=== PATIENT | female | born 1945 | race Caucasian/White ===

== ENCOUNTER 2017-08-07 07:11 | Day surgery (SDC) | payer MEDICARE ==
[~2017-08-07 07:11] MED LIST: Lactated Ringers 0 ML IV ONE; Sensorcaine 0.25% 10 ML ONE
[2017-08-07] MEDS ORDERED: SUBLIMAZE 250 MCG/5 ML IJ ONE (07:12)
[2017-08-07] MEDS ORDERED: BLOXIVERZ IV ONE (07:12)
[2017-08-07] MEDS ORDERED: ROBINUL IV ONE (07:12)
[2017-08-07] MEDS ORDERED: Nimbex 20MG/10 Ml Vial (HIGH RISK MED) IV ONE (07:12)
[2017-08-07] MEDS ORDERED: PHENYLEPHRINE HCL IJ ONE (07:12)
[2017-08-07] MEDS ORDERED: DIPRIVAN 200 MG/20 ML IV ONE (07:12)
[2017-08-07] MEDS ORDERED: Versed 2 MG/2 ML Injection IV ONE (07:12)
[2017-08-07] MEDS ORDERED: Sodium Chloride 0.9% 500 ML 500 ML IV SCH (07:45)
[2017-08-07 09:36] LABS: Calcium 8.6 mg/dL (8.4-10.2); Creatinine 1 4.28 mg/dL (0.52-1.04)
[2017-08-07] MEDS ORDERED: Sodium Chloride 0.9% 1000 ML 1,000 ML ONE (09:36)
[2017-08-07 09:40] LABS: Potassium 5.3 mmol/L (3.5-5.1)
[2017-08-07] MEDS ORDERED: KEFZOL 1 GM ONE (09:50)
[2017-08-07] MEDS ORDERED: Xopenex 1.25 MG/0.5 ML UD NEBULE IH ONE ×2 (11:00→11:01)
[2017-08-07 11:31] VITALS: O2SAT 96
[2017-08-07 12:13] VITALS: BP 127/94; PULSE 68
--- NOTE | 2017-08-07 15:34 | OP ---
SURGERY DATE/TIME: 08/07/2017922 PREOPERATIVE DIAGNOSIS: Renal failure. POSTOPERATIVE DIAGNOSES: 1) Renal failure. 2) A 7 x 4 cm incisional ventral hernia in the right upper quadrant, small umbilical hernia.. PROCEDURES: 1) Diagnostic laparoscopy. 2) Aborted planned procedure of laparoscopic CAPD catheter placement due to finding of large incisional ventral hernia. SURGEON: Morales Prado M.D. ANESTHESIA: General. SPECIMEN: None. ESTIMATED BLOOD LOSS: Minimal. COMPLICATIONS: Planned procedure aborted. FINDINGS: A 7 x 4 cm right upper quadrant incisional ventral hernia, small umbilical hernia, adhesions to the upper abdomen at the prior chevron incision, no adhesions to the lower midline incision or the umbilicus. PATIENT PRESENTATION: This patient presents with renal failure and desire for peritoneal dialysis. The patient is morbidly obese and has multiple prior abdominal surgeries. The patient is well aware that her obesity and multiple prior abdominal surgeries decreases her chance for successful CAPD catheter. After discussing risks and benefits would like to proceed. DESCRIPTION OF PROCEDURE: The patient was brought to the OR, placed supine on operating table, placed under general endotracheal anesthesia. The abdomen is prepped and draped in sterile fashion. A small incision made superior to her chevron incision in the left upper quadrant and a Veress needle introduced and pneumoperitoneum obtained. A second incision was made in her chevron incision in the lateral aspect and a 5 mm optical trocar was inserted under direct visualization at his place and the abdomen entered. The area was inspected with no apparent injury. The Veress needle was removed. The abdomen was inspected. There was a large mouth incisional ventral hernia at the most lateral aspect of her chevron incision on the right. It measured 7 x 4 cm. It did not have anything incarcerated in it. The patient is morbidly obese and this hernia could not be felt on prior exam. The patient also has a small umbilical hernia that has nothing incarcerated in it either. There were no adhesions to the lower abdomen. There were significant adhesions to the chevron incision in the upper abdomen but the entire rest of the abdomen was free of adhesions to abdominal wall. At this point the patient cannot undergo peritoneal dialysis due to incisional ventral hernia and the procedure was terminated. The abdomen was desufflated and the trocar removed. The skin was closed with 4-0 Vicryl suture. Steri-Strips were applied. The patient was recovered and taken to PACU in stable condition. If the patient strongly desires peritoneal dialysis we could potentially perform laparoscopic ventral hernia repair and then down the line after that is completely healed attempt to place the laparoscopic CAPD catheter.
== END 2017-08-07 11:45 | disposition home or self-care (01) ==
LOC: SDC 07:11
PROVIDERS: ATTEND Surgery
DX: N19 Unspecified kidney failure (principal); K43.2 Incisional hernia without obstruction or gangrene; K42.1 Umbilical hernia with gangrene
CPT/HCPCS: 36415; 80048; 94250; 94640; 99100; J0690; J2250; J2370; J2704; J2710; J3010; A9270-GY